=== PATIENT | male | born 1965 | race Caucasian/White ===

== ENCOUNTER 2019-06-03 12:06 | Outpatient (CLI) | payer BC, SELFPAY ==
[2019-06-03 12:47] LABS: ALT 11 U/L (12-78); AST 14 U/L (15-37); Albumin 2.9 g/dL (3.4-5.0); Alkaline Phosphatase 122 U/L (46-116); Anion Gap 9.7 mmol/L (3-11); BUN 21 mg/dL (7-18); Bilirubin, Total 0.4 mg/dL (0.2-1.0); CO2 28.3 mmol/L (21.0-32.0); CREATININE 0.97 mg/dL (0.70-1.30); Calcium 8.9 mg/dL (8.5-10.1); Chloride 91 mmol/L (98-107); Glucose 112 mg/dL (70-100); LDH 647 U/L (85-227); Potassium 5.1 mmol/L (3.5-5.1); Sodium 129 mmol/L (136-145); Total Protein 7.5 g/dL (6.4-8.2)
== END 2019-06-03 12:26 ==
PROVIDERS: PCP Family Medicine; Visit Provider Internal Medicine Hospice and Palliative Medicine
DX: C79.9 Secondary malignant neoplasm of unspecified site (principal)
CPT/HCPCS: 36415; 80053; 83615

== ENCOUNTER 2019-06-24 10:42 | Outpatient (CLI) | payer BC, SELFPAY ==
[2019-06-24 11:11] LABS: Abs Immature Grans 0.16 k/cumm (0.0-0.09); Absolute Lymphocyte Count 0.58 k/cumm (1.2-3.4); HCT 37.4 % (40.0-50.0); HGB 12.1 g/dL (13.5-17.5); Mean Corp. HGB Concentration 32.4 g/dL (32.0-36.0); Mean Corpuscular Hemoglobin 26.5 pg (27.0-33.0); Platelet Count 341 x1000/uL (130-400); RBC 4.56 m/cumm (4.50-6.00); RBC Distribution Width 15.3 % (11.8-14.1); White Blood Cell Count 11.61 k/cumm (4.4-10.8)
[2019-06-24 11:29] LABS: Absolute Eosinophil Count 0.12 k/cumm (0.0-0.7); Absolute Monocyte Count 0.58 k/cumm (0.11-0.7); Anisocytosis 1+; Diff Comment Manual Differential
[2019-06-24 11:36] LABS: ALT 20 U/L (16-63); AST 42 U/L (15-37); Alkaline Phosphatase 139 U/L (46-116); Anion Gap 13.7 mmol/L (3-11); BUN 12 mg/dL (7-18); Bilirubin, Total 0.6 mg/dL (0.2-1.0); CO2 23.3 mmol/L (21.0-32.0); CREATININE 0.81 mg/dL (0.70-1.30); Calcium 6.8 mg/dL (8.5-10.1); Chloride 94 mmol/L (98-107); Glucose 144 mg/dL (70-100); Potassium 4.5 mmol/L (3.5-5.1); Sodium 131 mmol/L (136-145); Total Protein 6.5 g/dL (6.4-8.2)
[2019-06-24 11:46] LABS: LDH 1646 U/L (85-227)
== END 2019-06-24 11:02 ==
PROVIDERS: PCP Family Medicine; Visit Provider Internal Medicine Hospice and Palliative Medicine
DX: C77.3 Secondary and unspecified malignant neoplasm of axilla and upper limb lymph nodes (principal)
CPT/HCPCS: 36415; 80053; 83615; 85025

== ENCOUNTER 2019-07-10 12:37 | Outpatient (CLI) | payer BC, SELFPAY ==
[2019-07-10 13:06] LABS: Abs Immature Grans 0.46 k/cumm (0.0-0.09); Absolute Basophil Count 0.02 k/cumm (0.0-0.2); Absolute Lymphocyte Count 0.14 k/cumm (1.2-3.4); Absolute Monocyte Count 0.74 k/cumm (0.11-0.7); Basophils % 0.1; HCT 36.3 % (40.0-50.0); HGB 11.5 g/dL (13.5-17.5); Immature Grans % 2.3; Lymphocytes % 0.7; Mean Corp. HGB Concentration 31.7 g/dL (32.0-36.0); Mean Corpuscular Hemoglobin 26.6 pg (27.0-33.0); Mean Corpuscular Volume 83.8 fL (80-95); Mean Platelet Volume 8.7 fL (8.0-11.0); Monocytes % 3.7; Neutrophils % 93.2; Platelet Count 318 x1000/uL (130-400); RBC 4.33 m/cumm (4.50-6.00); RBC Distribution Width 16.9 % (11.8-14.1); White Blood Cell Count 19.91 k/cumm (4.4-10.8)
[2019-07-10 13:08] LABS: Absolute Neutrophil Count 18.56 k/cumm (1.2-6.7)
[2019-07-10 13:23] LABS: ALT 17 U/L (16-63); AST 28 U/L (15-37); Albumin 1.5 g/dL (3.4-5.0); Alkaline Phosphatase 180 U/L (46-116); Anion Gap 8.4 mmol/L (3-11); BUN 16 mg/dL (7-18); Bilirubin, Total 0.5 mg/dL (0.2-1.0); CO2 24.6 mmol/L (21.0-32.0); CREATININE 0.73 mg/dL (0.70-1.30); Calcium 7.1 mg/dL (8.5-10.1); Chloride 96 mmol/L (98-107); Glucose 135 mg/dL (70-100); LDH 664 U/L (85-227); Sodium 129 mmol/L (136-145); Total Protein 5.2 g/dL (6.4-8.2)
== END 2019-07-10 12:57 ==
PROVIDERS: PCP Family Medicine; Visit Provider Internal Medicine Hospice and Palliative Medicine
DX: C79.9 Secondary malignant neoplasm of unspecified site (principal); Z79.899 Other long term (current) drug therapy
CPT/HCPCS: 36415; 80053; 83615; 85025

== ENCOUNTER 2019-07-15 12:07 | Outpatient (CLI) | payer BC, SELFPAY ==
[2019-07-15 12:47] LABS: HCT 35.2 % (40.0-50.0); HGB 11.1 g/dL (13.5-17.5); Mean Corp. HGB Concentration 31.5 g/dL (32.0-36.0); Mean Corpuscular Hemoglobin 26.6 pg (27.0-33.0); Mean Corpuscular Volume 84.2 fL (80-95); Platelet Count 193 x1000/uL (130-400); RBC 4.18 m/cumm (4.50-6.00); RBC Distribution Width 17.2 % (11.8-14.1); White Blood Cell Count 16.34 k/cumm (4.4-10.8)
[2019-07-15 13:06] LABS: ALT 24 U/L (16-63); AST 38 U/L (15-37); Albumin 1.5 g/dL (3.4-5.0); Alkaline Phosphatase 235 U/L (46-116); BUN 22 mg/dL (7-18); Bilirubin, Total 0.4 mg/dL (0.2-1.0); Chloride 96 mmol/L (98-107); Glucose 120 mg/dL (70-100); LDH 646 U/L (85-227); Potassium 5.4 mmol/L (3.5-5.1); Sodium 130 mmol/L (136-145); Total Protein 5.3 g/dL (6.4-8.2)
[2019-07-15 13:14] LABS: Absolute Lymphocyte Count 0.65 k/cumm (1.2-3.4); Absolute Monocyte Count 0.16 k/cumm (0.11-0.7); Absolute Neutrophil Count 15.52 k/cumm (1.2-6.7)
[2019-07-15 13:15] LABS: Diff Comment Manual Differential; RBC Morphology Normal
== END 2019-07-15 12:27 ==
PROVIDERS: PCP Family Medicine; Visit Provider Internal Medicine Hospice and Palliative Medicine
DX: C79.9 Secondary malignant neoplasm of unspecified site (principal)
CPT/HCPCS: 36415; 80053; 83615; 85025